=== PATIENT | female | born 1995 | race Caucasian/White ===

== ENCOUNTER 2021-07-27 03:57 | Emergency (ER) | payer OTHER ==
[~2021-07-27] VITALS: Ht 162.6 cm; Wt 72.6 kg
[2021-07-27 05:33] VITALS: BP 128/75
== END 2021-07-27 05:37 | disposition short-term general hospital (02) ==
LOC: M.ERS 03:57
DX: J36 Peritonsillar abscess (principal); Z20.822 Contact with and (suspected) exposure to COVID-19; H61.22 Impacted cerumen, left ear